=== PATIENT | female | born 1970 | race Caucasian/White ===

== ENCOUNTER 2018-01-10 10:04 | Emergency (ER) | payer OTHER ==
[~2018-01-10] VITALS: Ht 162.6 cm; Wt 55.0 kg
[2018-01-10] MEDS ORDERED: OLANZAPINE 10MG TABLET ODT PO ONE (11:15)
[2018-01-10 12:22] LABS: CLARITY URINE CLOUDY (CLEAR); COLOR URINE YELLOW (YELLOW); KETONES URINE TRACE (NEGATIVE); LEUKOCYTE ESTERASE URINE 2+ (NEGATIVE); NITRITE URINE NEGATIVE (NEGATIVE); OCCULT BLOOD URINE NEGATIVE (NEGATIVE); PROTEIN URINE TRACE (NEGATIVE); SPECIFIC GRAVITY URINE 1.031 (1.005-1.030)
[2018-01-10 12:52] LABS: CHLORIDE 107 mEq/L (98-107)
[2018-01-10 12:55] LABS: *BARBITURATES SCREEN URINE NEGATIVE (NEGATIVE); *BENZODIAZEPINES SCREEN URINE NEGATIVE (NEGATIVE); *COCAINE SCREEN URINE NEGATIVE (NEGATIVE)
[2018-01-10 12:56] LABS: BASOPHILS % 0.7 % (0.0-2.0); EOSINOPHILS % 2.6 % (0.0-5.0); HEMATOCRIT. 39.8 % (36.0-48.0); HEMOGLOBIN. 13.2 g/dL (12.0-16.0); LYMPHOCYTES % 16.2 % (20.0-50.0); MEAN CORPUSCULAR HEMOGLOBIN 29.2 pg (28.0-32.0); MEAN CORPUSCULAR VOLUME 87.6 fL (81.0-99.0); MEAN PLATELET VOLUME 7.4 fl (7.4-10.4); MONOCYTES % 7.7 % (2.0-8.0); NEUTROPHILS % 72.8 % (40.0-76.0); PLATELET 373 x1000/uL (130-400); RED BLOOD CELL COUNT 4.54 mill/uL (4.2-5.4)
[2018-01-10 12:56] LABS: METHADONE URINE SCREEN NEGATIVE (NEGATIVE); OPIATES URINE SCREEN NEGATIVE (NEGATIVE); PHENCYCLIDINE URINE SCREEN NEGATIVE (NEGATIVE)
[2018-01-10 13:01] LABS: ETHANOL BLOOD < 10 mg/dL
[2018-01-10 13:23] LABS: *AMPHETAMINES SCREEN URINE PRESUMTIVE POSITIVE (NEGATIVE); CANNABINOID URINE SCREEN PRESUMTIVE POSITIVE (NEGATIVE)
[2018-01-10 19:22] VITALS: BP 105/67
== END 2018-01-10 19:24 | disposition home or self-care (01) ==
LOC: ER 10:04
DX: T43.621A Poisoning by amphetamines, accidental (unintentional), initial encounter (principal); R44.3 Hallucinations, unspecified; N30.00 Acute cystitis without hematuria; Y92.89 Other specified places as the place of occurrence of the external cause; R03.0 Elevated blood-pressure reading, without diagnosis of hypertension; F31.9 Bipolar disorder, unspecified; F12.90 Cannabis use, unspecified, uncomplicated; Z59.0 Homelessness
CPT/HCPCS: 36415; 80053; 80305; 80307; 80329; 81003; 81025; 85025; 87086; 99284; G0482; Z7610

== ENCOUNTER 2023-07-16 03:01 | Emergency (ER) | payer MEDICAID, OTHER ==
[~2023-07-16] VITALS: Ht 160 cm; Wt 55.0 kg
[2023-07-16 03:07] VITALS: O2SAT 99
[2023-07-16] MEDS ORDERED: CETI1TAB MT (03:52)
[2023-07-16] MEDS ORDERED: FLUT9.9S16 BOTHNSTRLS (03:52)
[2023-07-16 04:12] LABS: CLARITY URINE CLEAR (CLEAR); COLOR URINE YELLOW (YELLOW); GLUCOSE URINE NEGATIVE (NEGATIVE); KETONES URINE NEGATIVE (NEGATIVE); LEUKOCYTE ESTERASE URINE 2+ (NEGATIVE); NITRITE URINE NEGATIVE (NEGATIVE); OCCULT BLOOD URINE TRACE (NEGATIVE); PH URINE 5.5 (4.5-8.0); PROTEIN URINE NEGATIVE (NEGATIVE); SPECIFIC GRAVITY URINE 1.021 (1.005-1.030); UROBILINOGEN URINE 0.2 E.U./dL (0.2-1.0)
[2023-07-16 04:33] VITALS: TEMP 97.5
[2023-07-16] MEDS: IBUPROFEN 400MG TABLET PO ONE (04:33)
[2023-07-16] MEDS: ACETAMINOPHEN 325MG TABLET PO ONE (04:33)
[2023-07-16 04:39] LABS: SQUAMOUS EPITHELIAL CELL URINE 1+ /lpf (RARE/1+)
[2023-07-16 04:44] LABS: WBC URINE 25-50 /hpf (0-2)
[2023-07-16 04:45] LABS: RBC URINE 15-25 /hpf (0-2)
[2023-07-16 04:46] LABS: BACTERIA URINE TRACE; TRICHOMONAS URINE 1+
[2023-07-16] MEDS ORDERED: METR-167 MT (05:02)
[2023-07-16] MEDS ORDERED: DOXY100C5 MT (05:02)
[2023-07-16] MEDS: CEFTRIAXONE SODIUM 500MG VIAL IM ONE (05:44)
[2023-07-16 13:20] VITALS: BP 135/71; PULSE 71; RESP 16
== END 2023-07-16 13:22 | disposition home or self-care (01) ==
LOC: ER 03:24
DX: R09.81 Nasal congestion (principal); F10.20 Alcohol dependence, uncomplicated; F31.9 Bipolar disorder, unspecified
CPT/HCPCS: 81003; 87086; 96372; 99283; J0696; Z7610